=== PATIENT | female | born 1955 | race Two or more races ===

== ENCOUNTER 2016-12-27 06:39 | Day surgery (SDC) | payer MEDICAID ==
[~2016-12-27 06:39] MED LIST: ADVAIR 25028 BLISTE1 INH; CLARITIN10 M6 PO; GLUCOPHAGE500 M3 PO; LISINOPRIL10 M1 PO; SYNTHROID112 MC1 PO; TYLENOL EXTRA500 M1 PO
== END 2016-12-27 16:50 ==
LOC: SHSB 06:39
PROC: 0HBU0ZZ Excision of Left Breast, Open Approach (ICD-10-PCS; principal; 2016-12-27)
PROC: 07B60ZX Excision of Left Axillary Lymphatic, Open Approach, Diagnostic (ICD-10-PCS; 2016-12-27)
PROC: 0JPT0XZ Removal of Tunneled Vascular Access Device from Trunk Subcutaneous Tissue and Fascia, Open Approach (ICD-10-PCS; 2016-12-27)
DX: C50.212 Malignant neoplasm of upper-inner quadrant of left female breast (principal); N60.32 Fibrosclerosis of left breast; I10 Essential (primary) hypertension; E11.9 Type 2 diabetes mellitus without complications; E03.9 Hypothyroidism, unspecified; J45.909 Unspecified asthma, uncomplicated; Z88.5 Allergy status to narcotic agent; Z98.51 Tubal ligation status; Z98.890 Other specified postprocedural states
CPT/HCPCS: A9520; J0690; J2250